=== PATIENT | male | born 1970 | race Caucasian/White ===

== ENCOUNTER 2018-01-22 19:58 | Emergency (ER) | payer OTHER, MEDICARE ==
[~2018-01-22] VITALS: Ht 175.3 cm; Wt 93.0 kg
[~2018-01-22 19:58] MED LIST: BUPROPION300 MG PO; EFFEXOR XR150 MG PO; EXALGO8 MG PO; MOBIC15 MG PO; OXYCODONE5 MG PO; OXYCONTIN (MONO40 MG PO; OXYCONTIN30 MG PO; OXYCONTIN60 MG PO; PANTOPRAZOLE SO40 M1 PO; PERCOCET 325 MG1 TA2 PO; PERCOCET 5-3251 EACH PO; REGLAN10 MG PO; TIZANIDINE2 MG PO; TRAZODONE HCL100 M1 PO; TRAZODONE100 MG PO; VENLAFAXINE HCL50 MG PO; ZOFRAN 4 MG TABL4 MG PO
[2018-01-22 20:04] VITALS: BP 146/80
--- NOTE | 2018-01-22 20:58 | RADIOLOGY REPORT ---
EXAMINATION: LEFT FOOT AND ANKLE 6 VIEWS CLINICAL INFORMATION: Left foot and ankle pain after fall. COMPARISON: None. TECHNIQUE: AP, lateral, oblique views of the left foot were obtained in addition to AP, lateral and oblique views of the left ankle. FINDINGS: There are no fractures or dislocations. There is mild soft tissue swelling overlying the lateral malleolus. No ankle joint effusion is identified. IMPRESSION: Mild soft tissue swelling without fracture or dislocation.
--- NOTE | 2018-01-22 21:11 | ED ANKLE/FOOT INJURY COMPLAINT ---
History of Present Illness General Chief Complaint: Foot or Ankle Injury Stated Complaint: PT HURT HIS LT FOOT,SWOLLEN AND PAINFUL Source: patient Exam Limitations: no limitations Vital Signs & Intake/Output Vital Signs & Intake/Output Vital Signs Date Time Temp Pulse Resp B/P B/P Pulse O2 O2 Flow FiO2 Mean Ox Delivery Rate 01/23 2004 98.7 93 18 146/80 95 Room Air Allergies Coded Allergies: NO KNOWN ALLERGIES (01/17/16) Reconcile Medications Ibuprofen 800 MG TABLET 1 TAB PO TID PRN pain Pantoprazole Sodium 40 MG TABLET. 1 TAB PO DAILY GI (Reported) Trazodone HCl 100 MG TABLET 2 TAB PO QPM SLEEP (Reported) Venlafaxine HCl 50 MG TABLET 2 TAB PO QPM MENTAL HEALTH (Reported) Triage Note: PT FROM HOME C/O LEFT ANKLE SWOLLEN FROM INJURY AROUND 1600. PT STATES HE WAS ON A ROOF FOR WORK AND LANDED WRONG ON HIS ANKLE. SWELLING NOTED. PT ABLE TO AMBULATED ON FOOT. PT PROVIDED WITH ICE PACK IN TRIAGE. VSS. MATTHEW BLACK IN TRIAGE FOR EVAL. PT IS ABLE TO WIGGLE TOES AND HAS BASELINE CIRCULATION AND COLOR. Triage Nurses Notes Reviewed? yes Occurred: just prior to arrival Duration: day(s): (1), constant, continues in ED, getting worse Timing: single episode today Severity: mild, moderate Severity Numbers: 7 Pain/Injury Location: Left: Foot, Ankle. Method of Injury: fall No Modifying Factors: none HPI: 47-year-old male history of back pain presents for evaluation of pain in his left foot. Patient reports around 4:00 today he had jumped off a roof aBOUT 2 feet onto the ground landing on his feet. He reports that he landed funny on his left foot causing it to roll. He reports pain to the medial aspect of the foot and medial ankle. There is no head strike or loss of conscious. Patient is able to walk. He reports initially had no pain until several hours later. The pain is worse with movement but he is able to bear weight. No numbness or tingling. No knee pain or hip pain no other injuries. Past History Travel History Traveled to [place] past 21 day No Medical History Any Pertinent Medical History? 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 No Review of Systems Review of Systems Constitutional: Reports: no symptoms. EENTM: Reports: no symptoms. Respiratory: Reports: no symptoms. Cardiovascular: Reports: no symptoms. GI: Reports: no symptoms. Genitourinary: Reports: no symptoms. Musculoskeletal: Reports: see HPI, joint pain, joint swelling, muscle pain, muscle stiffness. Skin: Reports: no symptoms. Neurological/Psychological: Reports: no symptoms. Hematologic/Endocrine: Reports: no symptoms. Immunologic/Allergic: Reports: no symptoms. All Other Systems: Reviewed and Negative Physical Exam Physical Exam General Appearance: well developed/nourished, no apparent distress, alert, awake Head: atraumatic, normal appearance Eyes: Bilateral: normal appearance, EOMI. Ears, Nose, Throat: hearing grossly normal Neck: normal inspection, supple, full range of motion Cardiovascular/Respiratory: no respiratory distress Leg/Knee/Thigh Left: normal range of motion, normal inspection Leg/Knee/Thigh Right: normal range of motion, normal inspection Ankle Left: normal inspection, soft tissue tenderness, limited range of motion, THERE IS TENDERNESS AND MILD SOFT TISSUE SWELLING TO THE MEDIAL ANKLE AND FOOR. NO BRUSING OR ABRAISONS. ROM IS LIMITED DUE TO PAIN. N/V SUPPLY INTACT, Ankle Right: normal inspection, normal range of motion Foot Left: soft tissue tenderness, swelling, TENDERNESS OVER THE HEEL ON THE MEDIAL SIDE., NO BRUSING. FULL ROMOF TH FOOT IS INTACT. N/V SUPPLY INTACT Foot Right: normal inspection, normal range of motion Neuro/Vascular: normal motor function, normal sensation Tendon: normal tendon function Skin: intact, normal color, warm/dry Progress Differential Diagnosis: gout, fracture, dislocation, sprain, contusion Plan of Care: Orders Procedure Date/time Status Durable Medical Equipment 01/22 2122 Active Patient is here with left foot and ankle pain after a fall around 4:00. He has some pain and swelling to the medial foot and medial ankle. No numbness or tingling neurovascular supplies intact x-rays obtained. Patient was medicated with ibuprofen. X-rays are negative for fracture there is some soft tissue swelling. Advised rest ice elevation compression. Pedro wrap applied. Patient was given crutches. Ibuprofen 800 every 8 hours. Follow-up with the primary care doctor discussed return precautions patient agrees the plan Diagnostic Imaging: Viewed by Me: Radiology Read. Discussed w/RAD: Radiology Read. Radiology Impression: PATIENT: LILLIE BRYSON SR PRESENT AGE: 47 PATIENT ACCOUNT NO: [id number] : 68 LOCATION: [facility] ORDERING PHYSICIAN: Pito CASTRO SERVICE DATE: 01/22/18 EXAM TYPE: RAD - XRY-ANKLE 3 OR MORE VIEWS L; XRY-FOOT COMPLETE, LEFT EXAMINATION: LEFT FOOT AND ANKLE 6 VIEWS CLINICAL INFORMATION: Left foot and ankle pain after fall. COMPARISON: None. TECHNIQUE: AP, lateral, oblique views of the left foot were obtained in addition to AP, lateral and oblique views of the left ankle. FINDINGS: There are no fractures or dislocations. There is mild soft tissue swelling overlying the lateral malleolus. No ankle joint effusion is identified. IMPRESSION: Mild soft tissue swelling without fracture or dislocation. DICTATED BY: Tesfaye Davila MD DATE/TIME DICTATED:01/22/182049 HAND EMBROIDERER: JUSTINE DATE/TIME TRANSCRIBED:01/22/182049 CONFIDENTIAL, DO NOT COPY WITHOUT APPROPRIATE AUTHORIZATION. <Electronically signed in Other Vendor System> SIGNED BY: Tesfaye Davila MD 01/22/182057 Departure Departure Disposition: HOME OR SELF CARE Condition: Stable Clinical Impression Primary Impression: Foot contusion Qualifiers: Encounter type: initial encounter Laterality: right Qualified Code: S90.31XA - Contusion of right foot, initial encounter Referrals: Katelin JACOBO,Rosa Elena Person (PCP/Family) Additional Instructions: Rest, keep the foot elevated Tylenol ibuprofen for pain. Wear Pedro wrap. Make a follow-up with your doctor for recheck in a few days monitor your symptoms return with any concerns Departure Forms: Customer Survey General Discharge Information Prescriptions: Current Visit Scripts Ibuprofen 1 TAB PO TID PRN pain #30 TAB
[2018-01-22] MEDS ORDERED: IBUPROFEN800 M1 PO (21:21)
== END 2018-01-22 21:31 ==
LOC: ERH 19:58
DX: S90.32XA Contusion of left foot, initial encounter (principal); M25.572 Pain in left ankle and joints of left foot; M79.672 Pain in left foot; F17.210 Nicotine dependence, cigarettes, uncomplicated; X50.9XXA Other and unspecified overexertion or strenuous movements or postures, initial encounter; Y93.89 Activity, other specified; Y92.9 Unspecified place or not applicable
CPT/HCPCS: 73610-LT; 73630-LT